=== PATIENT | female | born 1955 | race African-American/Black ===

== ENCOUNTER 2017-08-31 14:28 | Inpatient (IN) | payer OTHER ==
--- NOTE | 2017-08-31 18:06 | HP ---
COWS - Scale Resting Pulse: 0= [place] 80 or Below Sweatin=Flushed/Facial Moisture Restless Observation: 1= Difficult to Sit Still Pupil Size: 1= Pupils >than Normal Bone or Joint Aches: 2= Severe Diffuse Aches Runny Nose/ Eye Tearin= Runny Nose/Eyes GI Upset > 30mins: 2= Nausea/Diarrhea Tremor Observation: 1= Tremor [place], Not Seen Yawning Observation: 1= 1-2x During Session Anxiety or Irritability: 2=Irritable/Anxious Goose Flesh Skin: 0=Smooth Skin COWS Score: 14 Admission [facility] - [facility] Chief Complaint: Heroin Withdrawal symptoms Allergies/Adverse Reactions: Allergies Allergy/AdvReac Type Severity Reaction Status Date / Time No Known Drug Allergies Allergy Unknown Verified 08/31/17 17:19 RED MEAT Allergy Unknown Uncoded 08/31/17 17:19 History of Present Illness: Patient presents for withdrawal of heroin. Started using drugs at age 21. Sniffs heroin. Uses up to 14 bages a day of heroin. Has hx of HTN. Denies SI/ suicidal attempts. Denies seizures and history of overdose. Admitted to detox in 2011 at [facility]. - Ebola screening Have you traveled outside of the country in the last 21 days: No Have you had contact with anyone from an Ebola affected area: No Have you been sick,other than usual withdrawal symptoms: No Do you have a fever: No - Review of Systems Constitutional: Malaise, Night Sweats, Changes in sleep EENT: reports: Recent change in vision, Nose Congestion Respiratory: reports: SOB with Exertion (has history of asthma) Cardiac: reports: No Symptoms Reported GI: reports: Diarrhea, Nausea, Poor Fluid Intake : reports: No Symptoms Reported Musculoskeletal: reports: Back Pain, Joint Pain, Muscle Pain Neuro: reports: Tremors Endocrine: reports: Flushing Hematology: reports: No Symptoms Reported Psychiatric: reports: Anxious, Depressed Patient History - Patient Medical History Hx Anemia: No Hx Asthma: No Hx Chronic Obstructive Pulmonary Disease (COPD): Yes Hx Cancer: No Hx Cardiac Disorders: No Hx Congestive Heart Failure: No Hx Hypertension: Yes (ON MEDS.) Hx Hypercholesterolemia: No Hx Pacemaker: No HX Cerebrovascular Accident: No Hx Seizures: No Hx Dementia: No Hx Diabetes: No Hx Gastrointestinal Disorders: No Hx Liver Disease: No Hx Genitourinary Disorders: No Hx Sexually Transmitted Disorders: Yes (Tx for syphillis in college) Hx Renal Disease (ESRD): No Hx Thyroid Disease: No Hx Human Immunodeficiency Virus (HIV): No Hx Hepatitis C: No Hx Depression: No Hx Suicide Attempt: No Hx Bipolar Disorder: No Hx Schizophrenia: No - Patient Surgical History Past Surgical History: Yes Hx Neurologic Surgery: No Hx Cataract Extraction: No Hx Cardiac Surgery: No Hx Lung Surgery: No Hx Breast Surgery: No Hx Breast Biopsy: No Hx Abdominal Surgery: Yes (left inguinal hernia in 1979) Hx Appendectomy: No Hx Cholecystectomy: No Hx Genitourinary Surgery: No Hx Section: Yes (x 2,last in 1977) Hx Orthopedic Surgery: No Anesthesia Reaction: No - PPD History Previous Implant?: Yes Documented Results: Negative w/o proof Implanted On Prior R Admission?: Yes Date: 04/29/12 - Reproductive History Patient : No - Smoking Cessation Smoking history: Current every day smoker Have you smoked in the past 12 months: Yes Aproximately how many cigarettes per day: 6 Hx Chewing Tobacco Use: No Initiated information on smoking cessation: Yes 'Breaking Loose' booklet given: 08/31/17 - Substance & Tx. History Hx Alcohol Use: No Hx Substance Use: Yes Substance Use Type: Heroin Hx Substance Use Treatment: Yes - Substances Abused Heroin Route: Inhalation Frequency: Daily Amount used: 10 BAGS Age of first use: 20 Date of Last Use: 08/31/17 Family Disease History - Family Disease History Family Disease History: Diabetes: Father (), Heart Disease: Father, Mother () Admission Physical Exam BHS - Vital Signs Vital Signs: Vital Signs - 24 hr 08/31/17 17:12 Temperature 98.7 F Pulse Rate 74 Respiratory 20 Rate Blood Pressure 153/112 - Physical General Appearance: Yes: Appropriately Dressed, Anxious HEENTM: Yes: EOMI, Hearing grossly Normal, Normocephalic, Normal Voice, [place], Pharynx Normal Respiratory: Yes: Wheezing Neck: Yes: No masses,lesions,Nodules, Supple Breast: Yes: Breast Exam Deferred Cardiology: Yes: Within Normal Limits, Regular Rhythm, Regular Rate, S1, S2 Abdominal: Yes: Normal Bowel Sounds, Non Tender, Soft Genitourinary: Yes: Within Normal Limits Back: Yes: Muscle Spasm Musculoskeletal: Yes: Gait Steady, Back pain, Muscle Pain Extremities: Yes: Tremors Neurological: Yes: Fully Oriented, Alert, Depressed Affect Integumentary: Yes: Dry, Warm Lymphatic: Yes: Within Normal Limits - Diagnostic (1) Opioid dependence with withdrawal Current Visit: Yes Status: Acute (2) Opioid dependence Current Visit: Yes Status: Active (3) Essential hypertension Current Visit: No Status: Active (4) Depressed affect Current Visit: Yes Status: Acute Cleared for Admission [facility] - Detox or Rehab [facility] Level of Care: Medically Managed Detox Regimen/Protocol: Methadone [facility] Breath Alcohol Content Breath Alcohol Content: 0 Urine Pregancy Test - Result Urine Test Results: Negative- NO Line Present Urine Drug Screen - Results Drug Screen Negative: No Urine Drug Screen Results: OPI-Opiates Inpatient Rehab Admission - Initial Determination Are CD services needed?: Yes Free of communicable disease: Yes Not in need of hospitalization: Yes - Rehab Admission Criteria Previous failed treatment: Yes Poor recovery environment: Yes Comorbidities: Yes Lacks judgement: Yes
[2017-08-31] MEDS ORDERED: MAGNESIUM CITRATE 300 ML BOTTLE PO PRN (18:16)
[2017-08-31] MEDS ORDERED: MENTHOL/PHENOL 1 EACH UD MM PRN (18:16)
[2017-08-31] MEDS ORDERED: MAG HYDROX/AL HYDROX/SIMETH 30 ML UNIT-DOSE CUP PO PRN (18:16)
[2017-08-31] MEDS ORDERED: hydrOXYzine PAMOATE 50 MG CAPSULE (FP) PO PRN (18:16)
[2017-08-31] MEDS ORDERED: NICOTINE POLACRILEX 2 MG GUM BC PRN (18:16)
[2017-08-31] MEDS ORDERED: guaiFENesin/D-METHORPHAN HB 10 ML UNIT-DOSE CUPS PO PRN (18:16)
[2017-08-31] MEDS ORDERED: P-EPHED 60MG/TRIPROLIDI 2.5MG TABLET PO PRN (18:16)
[2017-08-31] MEDS ORDERED: MAGNESIUM HYDROX 2400MG/30ML ORAL SUSPENSION 30 ML CUP PO PRN (18:16)
[2017-08-31] MEDS ORDERED: LOPERAMIDE HCL 2 MG CAPSULE PO PRN (18:16)
[2017-08-31] MEDS ORDERED: IBUPROFEN 400 MG TABLET (FP) PO PRN (18:16)
[2017-08-31] MEDS ORDERED: ACETAMINOPHEN 325 MG TABLET (FP) PO PRN (18:16)
[2017-08-31] MEDS ORDERED: ALBUTEROL SO4 18 GM HFA INHALER IH PRN (18:19)
[2017-08-31] MEDS ORDERED: METHADONE HCL 10 MG TABLET (FOR DETOX USE ONLY) PO ONE ×2 (19:00→23:00)
[2017-08-31] MEDS ORDERED: amLODIPine BESYLATE 5 MG TABLET (FP) PO ONE (19:00)
[2017-08-31] MEDS: diazePAM 5 MG TABLET PO PRN (19:13)
[2017-08-31] MEDS ORDERED: MELATONIN 5 MG TABLETS PO PRN (22:00)
[2017-08-31] MEDS: THIAMINE HCL 100 MG TABLET (FP) PO SCH (22:46)
[2017-09-01] MEDS: diazePAM 5 MG TABLET PO PRN ×4 (00:57→22:56)
[2017-09-01 01:39] LABS: URINE APPEARANCE CLEAR; URINE BILIRUBIN NEGATIVE (<2.0 mg/dL); URINE BLOOD NEGATIVE (NEGATIVE); URINE COLOR YELLOW; URINE GLUCOSE (UA) NEGATIVE (NEGATIVE); URINE KETONE NEGATIVE (NEGATIVE); URINE LEUK ESTERASE TRACE (NEGATIVE); URINE NITRITE NEGATIVE (NEGATIVE); URINE PROTEIN NEGATIVE (NEGATIVE); URINE UROBILINOGEN NEGATIVE mg/dL (0.2-1.0)
[2017-09-01 01:56] LABS: EPI CELLS FEW /HPF (FEW); URINE MUCUS RARE
[2017-09-01] MEDS ORDERED: METHADONE HCL 10 MG TABLET (FOR DETOX USE ONLY) PO ONE (10:00)
--- NOTE | 2017-09-01 10:35 | EKG ---
Test Reason : Blood Pressure : / mmHG Vent. Rate : 059 BPM Atrial Rate : 059 BPM P-R Int : 278 ms QRS Dur : 096 ms QT Int : 458 ms P-R-T Axes : 003 -13 017 degrees QTc Int : 453 ms SINUS BRADYCARDIA WITH 1ST DEGREE A-V BLOCK INFERIOR INFARCT , AGE UNDETERMINED ABNORMAL ECG NO PREVIOUS ECGS AVAILABLE Confirmed by ENRRIQUE ROLDAN MD ([id number]) on 09/01/2017 10:35:07 AM Referred By: Confirmed By:ENRRIQUE ROLDAN MD
[2017-09-01 11:16] LABS: HEMATOCRIT 37.2 % (32.4-45.2); HEMOGLOBIN 12.3 GM/dL (10.7-15.3); MCH 30.6 pg (25.7-33.7); MCHC 33.1 g/dl (32.0-36.0); MEAN CELL VOLUME 92.7 fl (80-96); MEAN PLT VOLUME 9.3 fl (7.5-11.1); PLATELET COUNT 301 K/MM3 (134-434); RBC 4.01 M/mm3 (3.60-5.2); RDW 13.7 % (11.6-15.6); WHITE BLOOD COUNT 6.4 K/mm3 (4.0-10.0)
[2017-09-01] MEDS: PRENATAL VITAMINS W/ FOLIC ACID TABLET (FP) PO SCH (11:21)
[2017-09-01 11:34] LABS: CHLORIDE 100 mmol/L (98-107); POTASSIUM 3.3 mmol/L (3.5-5.1); SODIUM 140 mmol/L (136-145)
[2017-09-01] MEDS: NICOTINE 14 MG/24 HOURS TOPICAL PATCH TD SCH (11:45)
[2017-09-01 12:00] LABS: ALBUMIN 3.2 g/dl (3.4-5.0); ANION GAP 6 (8-16); BILIRUBIN,TOTAL 0.5 mg/dL (0.2-1.0); BLOOD UREA NITROGEN 11 mg/dL (7-18); CO2 34 mmol/L (21-32); CREATININE 0.8 mg/dL (0.55-1.02); GLUCOSE,RANDOM 94 mg/dL (74-106); SGOT/AST 15 U/L (15-37); SGPT/ALT 20 U/L (12-78); TOT PROT 6.4 g/dl (6.4-8.2)
[2017-09-01 12:13] LABS: ALK PHOS 53 U/L (45-117)
[2017-09-01 12:43] LABS: SICKLE CELL SCREEN NEGATIVE (NEGATIVE)
--- NOTE | 2017-09-01 14:25 | CONSULT ---
[facility] Psychiatric Consult - Data Date of interview: 09/01/17 Admission source: [facility] Identifying data: Readmission to [facility] for this 61 y/o AA female seeking detox treatment on for heroin dependence.Patient is ,a mother of two,domiciled,unemployed and supported on Social Security benefits. Substance Abuse History: Confirmed by patient in this interview.Details in the current [facility] report that follows : Smoking history: Current every day smoker. Have you smoked in the past 12 months: Yes. Aproximately how many cigarettes per day: 6. Hx Chewing Tobacco Use: No. Initiated information on smoking cessation: Yes. 'Breaking Loose' booklet given: 08/31/17. - Substance & Tx. History. Hx Alcohol Use: No. Hx Substance Use: Yes. Substance Use Type: Heroin. Hx Substance Use Treatment: Yes. - Substances Abused. Heroin. Route: Inhalation. Frequency: Daily. Amount used: 10 BAGS. Age of first use: 20. Date of Last Use: 08/31/17 Medical History: Hypertension,dyslipidemia,antecedent of treatment for syphilis, COPD and a history of surgeries (two sections + left inguinal herniorraphy). Psychiatric History: Patient denies. Additional Comment: Urine Drug Screen Results: OPI-Opiates.Noted. Mental Status Exam - Mental Status Exam Alert and Oriented to: Time, Place, Person Cognitive Function: Good Patient Appearance: Well Groomed (short stature) Mood: Withdrawn, Anxious Affect: Mood Congruent Patient Behavior: Fatigued, Appropriate, Cooperative Speech Pattern: Clear, Appropriate Voice Loudness: Normal Thought Process: Goal Oriented Thought Disorder: Not Present Hallucinations: Denies Suicidal Ideation: Denies Homicidal Ideation: Denies Insight/Judgement: Poor Sleep: Fair Appetite: Good Muscle strength/Tone: Normal Gait/Station: Normal Psychiatric Findings - Problem List ([place] 1, 2,3) (1) Opioid dependence with withdrawal Current Visit: Yes Status: Acute (2) Substance induced mood disorder Current Visit: Yes Status: Acute - Initial Treatment Plan Initial Treatment Plan: Psychoeducation.Detoxification in progress.Support.observation.
--- NOTE | 2017-09-01 15:21 | PN ---
BHS COWS - Scale Resting Pulse: 0= [place] 80 or Below Sweatin= Chills/Flushing Restless Observation: 1= Difficult to Sit Still Pupil Size: 0= Normal to Room Light Bone or Joint Aches: 2= Severe Diffuse Aches Runny Nose/ Eye Tearin= Nasal Congestion GI Upset > 30mins: 2= Nausea/Diarrhea Tremor Observation of Outstretched Hands: 1= Tremor [place], Not Seen Yawning Observation: 0= None Anxiety or Irritability: 2=Irritable/Anxious Goose Flesh Skin: 0=Smooth Skin COWS Score: 10 BHS Progress Note (SOAP) Subjective: Back pain, tremors and chills Objective: 09/01/17 15:19 Vital Signs - 8 hr 09/01/17 10:00 Temperature 98.1 F Pulse Rate 57 L Respiratory 20 Rate Blood Pressure 125/79 Laboratory Last Values WBC 6.4 K/mm3 (4.0-10.0) 09/01/17 08:00 RBC 4.01 M/mm3 (3.60-5.2) 09/01/17 08:00 Hgb 12.3 GM/dL (10.7-15.3) 09/01/17 08:00 Hct 37.2 % (32.4-45.2) 09/01/17 08:00 MCV 92.7 fl (80-96) 09/01/17 08:00 MCH 30.6 pg (25.7-33.7) 09/01/17 08:00 MCHC 33.1 g/dl (32.0-36.0) 09/01/17 08:00 RDW 13.7 % (11.6-15.6) 09/01/17 08:00 Plt Count 301 K/MM3 (134-434) 09/01/17 08:00 MPV 9.3 fl (7.5-11.1) 09/01/17 08:00 Sickle Cell Screen Negative (NEGATIVE) 09/01/17 08:00 Sodium 140 mmol/L (136-145) 09/01/17 08:00 Potassium 3.3 mmol/L (3.5-5.1) L 09/01/17 08:00 Chloride 100 mmol/L (98-107) 09/01/17 08:00 Carbon Dioxide 34 mmol/L (21-32) H 09/01/17 08:00 Anion Gap 6 (8-16) L 09/01/17 08:00 BUN 11 mg/dL (7-18) 09/01/17 08:00 Creatinine 0.8 mg/dL (0.55-1.02) 09/01/17 08:00 Creat Clearance w eGFR > 60 (>60) 09/01/17 08:00 Random Glucose 94 mg/dL (74-106) 09/01/17 08:00 Calcium 9.0 mg/dL (8.5-10.1) 09/01/17 08:00 Total Bilirubin 0.5 mg/dL (0.2-1.0) D 09/01/17 08:00 AST 15 U/L (15-37) 09/01/17 08:00 ALT 20 U/L (12-78) 09/01/17 08:00 Alkaline Phosphatase 53 U/L (45-117) 09/01/17 08:00 Total Protein 6.4 g/dl (6.4-8.2) 09/01/17 08:00 Albumin 3.2 g/dl (3.4-5.0) L 09/01/17 08:00 Urine Color Yellow 09/01/17 00:02 Urine Appearance Clear 09/01/17 00:02 Urine pH 5.0 (5.0-8.0) D 09/01/17 00:02 Ur Specific [place] 1.020 (1.001-1.035) 09/01/17 00:02 Urine Protein Negative (NEGATIVE) 09/01/17 00:02 Urine Glucose (UA) Negative (NEGATIVE) 09/01/17 00:02 Urine Ketones Negative (NEGATIVE) 09/01/17 00:02 Urine Blood Negative (NEGATIVE) 09/01/17 00:02 Urine Nitrite Negative (NEGATIVE) 09/01/17 00:02 Urine Bilirubin Negative (<2.0 mg/dL) 09/01/17 00:02 Urine Urobilinogen Negative mg/dL (0.2-1.0) 09/01/17 00:02 Ur Leukocyte Esterase Trace (NEGATIVE) 09/01/17 00:02 Urine WBC (Auto) 9 /hpf (3-5) 09/01/17 00:02 Urine RBC (Auto) 2 /hpf (0-3) 09/01/17 00:02 Ur Epithelial Cells Few /HPF (FEW) 09/01/17 00:02 Urine Mucus Rare 09/01/17 00:02 Lab note-low potassium level Assessment: 09/01/17 15:20 Withdrawal sx Hypokalemia Plan: Continue detox Potassium supplement 20mg PO x 3 days. Repeat BMP on 09/03
[2017-09-01] MEDS ORDERED: POTASSIUM CHLORIDE TABS 10 MEQ TABLET.ER (FP) PO SCH (15:30)
[2017-09-01] MEDS: POTASSIUM CHLORIDE TABS 20 MEQ TABLET.ER (FP) PO SCH (17:09)
[2017-09-01] MEDS: THIAMINE HCL 100 MG TABLET (FP) PO SCH (22:56)
[2017-09-02] MEDS: diazePAM 5 MG TABLET PO PRN ×3 (02:46→15:22)
[2017-09-02] MEDS ORDERED: METHADONE HCL 5 MG TABLET (FOR DETOX USE ONLY) PO ONE (10:00)
[2017-09-02] MEDS ORDERED: SODIUM CHLORIDE NASAL SPRAY 44 ML BOTTLE NS PRN (10:28)
[2017-09-02] MEDS ORDERED: amLODIPine BESYLATE 5 MG TABLET (FP) PO SCH (10:30)
--- NOTE | 2017-09-02 10:33 | PN ---
BHS COWS - Scale Resting Pulse: 0= [place] 80 or Below Sweatin= Chills/Flushing Restless Observation: 1= Difficult to Sit Still Pupil Size: 0= Normal to Room Light Bone or Joint Aches: 1= Mild Discomfort Runny Nose/ Eye Tearin= Nasal Congestion GI Upset > 30mins: 1= Stomach Cramp Tremor Observation of Outstretched Hands: 1= Tremor [place], Not Seen Yawning Observation: 2= >3x During Session Anxiety or Irritability: 1=Feels Anxious/Irritable Goose Flesh Skin: 0=Smooth Skin COWS Score: 9 BHS Progress Note (SOAP) Subjective: sweat restlessness tremor poor sleep joint ache body pain stuffy nose i have high blood pressure Objective: 09/02/17 10:31 Vital Signs Temperature 98.1 F 09/02/17 06:00 Pulse Rate 60 09/02/17 06:00 Respiratory Rate 18 09/02/17 06:00 Blood Pressure 129/76 09/02/17 06:00 O2 Sat by Pulse Oximetry (%) Laboratory Last Values WBC 6.4 K/mm3 (4.0-10.0) 09/01/17 08:00 RBC 4.01 M/mm3 (3.60-5.2) 09/01/17 08:00 Hgb 12.3 GM/dL (10.7-15.3) 09/01/17 08:00 Hct 37.2 % (32.4-45.2) 09/01/17 08:00 MCV 92.7 fl (80-96) 09/01/17 08:00 MCH 30.6 pg (25.7-33.7) 09/01/17 08:00 MCHC 33.1 g/dl (32.0-36.0) 09/01/17 08:00 RDW 13.7 % (11.6-15.6) 09/01/17 08:00 Plt Count 301 K/MM3 (134-434) 09/01/17 08:00 MPV 9.3 fl (7.5-11.1) 09/01/17 08:00 Sickle Cell Screen Negative (NEGATIVE) 09/01/17 08:00 Sodium 140 mmol/L (136-145) 09/01/17 08:00 Potassium 3.3 mmol/L (3.5-5.1) L 09/01/17 08:00 Chloride 100 mmol/L (98-107) 09/01/17 08:00 Carbon Dioxide 34 mmol/L (21-32) H 09/01/17 08:00 Anion Gap 6 (8-16) L 09/01/17 08:00 BUN 11 mg/dL (7-18) 09/01/17 08:00 Creatinine 0.8 mg/dL (0.55-1.02) 09/01/17 08:00 Creat Clearance w eGFR > 60 (>60) 09/01/17 08:00 Random Glucose 94 mg/dL (74-106) 09/01/17 08:00 Calcium 9.0 mg/dL (8.5-10.1) 09/01/17 08:00 Total Bilirubin 0.5 mg/dL (0.2-1.0) D 09/01/17 08:00 AST 15 U/L (15-37) 09/01/17 08:00 ALT 20 U/L (12-78) 09/01/17 08:00 Alkaline Phosphatase 53 U/L (45-117) 09/01/17 08:00 Total Protein 6.4 g/dl (6.4-8.2) 09/01/17 08:00 Albumin 3.2 g/dl (3.4-5.0) L 09/01/17 08:00 Urine Color Yellow 09/01/17 00:02 Urine Appearance Clear 09/01/17 00:02 Urine pH 5.0 (5.0-8.0) D 09/01/17 00:02 Ur Specific [place] 1.020 (1.001-1.035) 09/01/17 00:02 Urine Protein Negative (NEGATIVE) 09/01/17 00:02 Urine Glucose (UA) Negative (NEGATIVE) 09/01/17 00:02 Urine Ketones Negative (NEGATIVE) 09/01/17 00:02 Urine Blood Negative (NEGATIVE) 09/01/17 00:02 Urine Nitrite Negative (NEGATIVE) 09/01/17 00:02 Urine Bilirubin Negative (<2.0 mg/dL) 09/01/17 00:02 Urine Urobilinogen Negative mg/dL (0.2-1.0) 09/01/17 00:02 Ur Leukocyte Esterase Trace (NEGATIVE) 09/01/17 00:02 Urine WBC (Auto) 9 /hpf (3-5) 09/01/17 00:02 Urine RBC (Auto) 2 /hpf (0-3) 09/01/17 00:02 Ur Epithelial Cells Few /HPF (FEW) 09/01/17 00:02 Urine Mucus Rare 09/01/17 00:02 RPR Titer Nonreactive (NONREACTIVE) 09/01/17 08:00 lab noted potassium supplement Assessment: 09/02/17 10:32 withdrawal sx hypokalemia 09/02/17 10:32 hypertension 09/02/17 10:33 stuffy nose Plan: continue detox potassium supplement resume home med hypertension nasal spread
[2017-09-02] MEDS: POTASSIUM CHLORIDE TABS 20 MEQ TABLET.ER (FP) PO SCH (10:41)
[2017-09-02] MEDS: PRENATAL VITAMINS W/ FOLIC ACID TABLET (FP) PO SCH (10:41)
[2017-09-02] MEDS: NICOTINE 14 MG/24 HOURS TOPICAL PATCH TD SCH (10:42)
[2017-09-02] MEDS: ASPIRIN 81 MG CHEWABLE TABLETS PO SCH (11:36)
[2017-09-02] MEDS: amLODIPine BESYLATE 5 MG TABLET (FP) PO SCH (11:37)
[2017-09-02] MEDS: SODIUM CHLORIDE NASAL SPRAY 44 ML BOTTLE NS SCH ×2 (13:49→22:52)
[2017-09-02] MEDS: THIAMINE HCL 100 MG TABLET (FP) PO SCH (22:52)
[2017-09-03] MEDS: diazePAM 5 MG TABLET PO PRN (01:33)
[2017-09-03] MEDS: SODIUM CHLORIDE NASAL SPRAY 44 ML BOTTLE NS SCH (05:26)
[2017-09-03 06:27] VITALS: BP 127/86; PULSE 89; TEMP 97.7
[2017-09-03] MEDS ORDERED: METHADONE HCL 5 MG TABLET (FOR DETOX USE ONLY) PO ONE (10:00)
[2017-09-03] MEDS: ASPIRIN 81 MG CHEWABLE TABLETS PO SCH (11:02)
[2017-09-03] MEDS: NICOTINE 14 MG/24 HOURS TOPICAL PATCH TD SCH (11:02)
[2017-09-03] MEDS: POTASSIUM CHLORIDE TABS 20 MEQ TABLET.ER (FP) PO SCH (11:02)
[2017-09-03] MEDS: amLODIPine BESYLATE 5 MG TABLET (FP) PO SCH (11:03)
[2017-09-03] MEDS: PRENATAL VITAMINS W/ FOLIC ACID TABLET (FP) PO SCH (11:03)
--- NOTE | 2017-09-03 11:26 | DS ---
[facility] Detox Discharge Summary Admission Date: 08/31/17 Discharge Date: 09/03/17 - History Present History: Opioid Dependence Additional Comments: 61 years old female with long history of heroin dependence, admitted for opiates detox, wants to terminate the detox process patient insists to leave the facility "i have priority" health teaching on hypertension and benefit of healthy life style and medication adherence patient acknowledge community self support meeting patient agrees MD BAR aftercare and medical follow up patient is alert oriented x 3 steady gait, coherent, no acute distress, denies suicidal denies homocidal no self destructive behavior S1S2 clear lung bilaterally abdomen self non tender had regular bowel movement early today extremities full range of motion - Physical Exam Results Vital Signs: Vital Signs Temperature 97.7 F 09/03/17 06:26 Pulse Rate 89 09/03/17 06:26 Respiratory Rate 18 09/03/17 06:26 Blood Pressure 127/86 09/03/17 06:26 O2 Sat by Pulse Oximetry (%) Pertinent Admission Physical Exam Findings: withdrawal sx Vital Signs Temperature 97.7 F 09/03/17 06:26 Pulse Rate 89 09/03/17 06:26 Respiratory Rate 18 09/03/17 06:26 Blood Pressure 127/86 09/03/17 06:26 O2 Sat by Pulse Oximetry (%) Laboratory Last Values WBC 6.4 K/mm3 (4.0-10.0) 09/01/17 08:00 RBC 4.01 M/mm3 (3.60-5.2) 09/01/17 08:00 Hgb 12.3 GM/dL (10.7-15.3) 09/01/17 08:00 Hct 37.2 % (32.4-45.2) 09/01/17 08:00 MCV 92.7 fl (80-96) 09/01/17 08:00 MCH 30.6 pg (25.7-33.7) 09/01/17 08:00 MCHC 33.1 g/dl (32.0-36.0) 09/01/17 08:00 RDW 13.7 % (11.6-15.6) 09/01/17 08:00 Plt Count 301 K/MM3 (134-434) 09/01/17 08:00 MPV 9.3 fl (7.5-11.1) 09/01/17 08:00 Sickle Cell Screen Negative (NEGATIVE) 09/01/17 08:00 Sodium 140 mmol/L (136-145) 09/01/17 08:00 Potassium 3.3 mmol/L (3.5-5.1) L 09/01/17 08:00 Chloride 100 mmol/L (98-107) 09/01/17 08:00 Carbon Dioxide 34 mmol/L (21-32) H 09/01/17 08:00 Anion Gap 6 (8-16) L 09/01/17 08:00 BUN 11 mg/dL (7-18) 09/01/17 08:00 Creatinine 0.8 mg/dL (0.55-1.02) 09/01/17 08:00 Creat Clearance w eGFR > 60 (>60) 09/01/17 08:00 Random Glucose 94 mg/dL (74-106) 09/01/17 08:00 Calcium 9.0 mg/dL (8.5-10.1) 09/01/17 08:00 Total Bilirubin 0.5 mg/dL (0.2-1.0) D 09/01/17 08:00 AST 15 U/L (15-37) 09/01/17 08:00 ALT 20 U/L (12-78) 09/01/17 08:00 Alkaline Phosphatase 53 U/L (45-117) 09/01/17 08:00 Total Protein 6.4 g/dl (6.4-8.2) 09/01/17 08:00 Albumin 3.2 g/dl (3.4-5.0) L 09/01/17 08:00 Urine Color Yellow 09/01/17 00:02 Urine Appearance Clear 09/01/17 00:02 Urine pH 5.0 (5.0-8.0) D 09/01/17 00:02 Ur Specific [place] 1.020 (1.001-1.035) 09/01/17 00:02 Urine Protein Negative (NEGATIVE) 09/01/17 00:02 Urine Glucose (UA) Negative (NEGATIVE) 09/01/17 00:02 Urine Ketones Negative (NEGATIVE) 09/01/17 00:02 Urine Blood Negative (NEGATIVE) 09/01/17 00:02 Urine Nitrite Negative (NEGATIVE) 09/01/17 00:02 Urine Bilirubin Negative (<2.0 mg/dL) 09/01/17 00:02 Urine Urobilinogen Negative mg/dL (0.2-1.0) 09/01/17 00:02 Ur Leukocyte Esterase Trace (NEGATIVE) 09/01/17 00:02 Urine WBC (Auto) 9 /hpf (3-5) 09/01/17 00:02 Urine RBC (Auto) 2 /hpf (0-3) 09/01/17 00:02 Ur Epithelial Cells Few /HPF (FEW) 09/01/17 00:02 Urine Mucus Rare 09/01/17 00:02 RPR Titer Nonreactive (NONREACTIVE) 09/01/17 08:00 lab noted - Treatment Hospital Course: Detox Protocol Followed, Responded well Patient has Accepted a Rehab Referral to: as per counselor arranged - Medication Discharge Medications: Ambulatory Orders Aspirin [ASA -] 81 mg PO DAILY 08/31/17 Amlodipine Besylate [Norvasc -] 5 mg PO DAILY #30 tablet 09/03/17 Amlodipine Besylate [Norvasc -] 5 mg PO DAILY #30 tablet 09/03/17 - Diagnosis (1) Essential hypertension Current Visit: Yes Status: Chronic (2) Opioid dependence with withdrawal Current Visit: Yes Status: Acute - AMA Did Patient Leave Against Medical Advice: Yes
[2017-09-03 12:32] LABS: ANION GAP 5 (8-16); BLOOD UREA NITROGEN 8 mg/dL (7-18); CALCIUM 9.1 mg/dL (8.5-10.1); CHLORIDE 100 mmol/L (98-107); CO2 34 mmol/L (21-32); CREATININE 0.8 mg/dL (0.55-1.02); GLUCOSE,RANDOM 99 mg/dL (74-106); POTASSIUM 3.7 mmol/L (3.5-5.1); SODIUM 139 mmol/L (136-145)
[2017-09-04] MEDS ORDERED: METHADONE HCL 10 MG TABLET (FOR DETOX USE ONLY) PO ONE (10:00)
[2017-09-05] MEDS ORDERED: METHADONE HCL 5 MG TABLET (FOR DETOX USE ONLY) PO ONE (06:00)
== END 2017-09-03 11:02 | disposition left against medical advice (07) | DRG 770 ==
LOC: YASAS 14:28 → Y6N 18:23
PROVIDERS: ADMIT Internal Medicine; ATTEND Internal Medicine
PROC: HZ2ZZZZ Detoxification Services for Substance Abuse Treatment (ICD-10-PCS; principal; 2017-08-31)
DX: F11.23 Opioid dependence with withdrawal (principal); F19.24 Other psychoactive substance dependence with psychoactive substance-induced mood disorder; I10 Essential (primary) hypertension; Z86.19 Personal history of other infectious and parasitic diseases; Z59.0 Homelessness
CPT/HCPCS: 36415; 80048; 80053; 81003; 81015; 85027; 85660; 86593; 93005; 93010

== ENCOUNTER 2018-10-09 14:42 | Inpatient (IN) | payer OTHER ==
--- NOTE | 2018-10-09 19:32 | HP ---
COWS - Scale Resting Pulse: 1= [place] 81-100 Sweatin=Flushed/Facial Moisture Restless Observation: 1= Difficult to Sit Still Pupil Size: 1= Pupils >than Normal Bone or Joint Aches: 2= Severe Diffuse Aches Runny Nose/ Eye Tearin= Nasal Congestion GI Upset > 30mins: 1= Stomach Cramp Tremor Observation: 1= Tremor [place], Not Seen Yawning Observation: 1= 1-2x During Session Anxiety or Irritability: 1=Feels Anxious/Irritable Goose Flesh Skin: 0=Smooth Skin COWS Score: 12 CIWA Score - Admission Criteria [facility]ASAS Guidelines: Admission for Medically Managed Detox: Requires at least one of the followin. CIWA greater than 12 2. Seizures within the past 24 hours 3. Delirium tremens within the past 24 hours 4. Hallucinations within the past 24 hours 5. Acute intervention needed for co occurring medical disorder 6. Acute intervention needed for co occurring psychiatric disorder 7. Severe withdrawal that cannot be handled at a lower level of care (continued vomiting, continued diarrhea, abnormal vital signs) requiring intravenous medication and/or fluids 8. Admission ROS S - HPI Chief Complaint: heroin detox 62 yo with h/o HTN- does not remember medication she takes, states she is here b /c she is ready for detox. HAs been using heroin since age 19. heroin- uses 10 -13 bags, sniffing, no OD denies other drugs UTox: opioids DUR- no controlled substances Allergies/Adverse Reactions: Allergies Allergy/AdvReac Type Severity Reaction Status Date / Time No Known Drug Allergies Allergy Unknown Verified 08/31/17 17:19 RED MEAT Allergy Unknown Uncoded 08/31/17 17:19 - Ebola screening Have you traveled outside of the country in the last 21 days: No Have you had contact with anyone from an Ebola affected area: No Do you have a fever: No Patient History - Patient Medical History Hx Anemia: No Hx Asthma: No Hx Chronic Obstructive Pulmonary Disease (COPD): Yes Hx Cancer: No Hx Cardiac Disorders: No Hx Congestive Heart Failure: No Hx Hypertension: Yes (ON MEDS.) Hx Hypercholesterolemia: No Hx Pacemaker: No HX Cerebrovascular Accident: No Hx Seizures: No Hx Dementia: No Hx Diabetes: No Hx Gastrointestinal Disorders: No Hx Liver Disease: No Hx Genitourinary Disorders: No Hx Sexually Transmitted Disorders: Yes (Tx for syphillis in college) Hx Renal Disease (ESRD): No Hx Thyroid Disease: No Hx Human Immunodeficiency Virus (HIV): No Hx Hepatitis C: No Hx Depression: No Hx Suicide Attempt: No Hx Bipolar Disorder: No Hx Schizophrenia: No - Patient Surgical History Past Surgical History: Yes Hx Neurologic Surgery: No Hx Cataract Extraction: No Hx Cardiac Surgery: No Hx Lung Surgery: No Hx Breast Surgery: No Hx Breast Biopsy: No Hx Abdominal Surgery: Yes (left inguinal hernia in 1979) Hx Appendectomy: No Hx Cholecystectomy: No Hx Genitourinary Surgery: No Hx Section: Yes (x 2,last in 1977) Hx Orthopedic Surgery: No Anesthesia Reaction: No - PPD History Documented Results: Negative w/o proof Date: 09/02/17 - Smoking Cessation Smoking history: Current every day smoker Have you smoked in the past 12 months: Yes Aproximately how many cigarettes per day: 10 Hx Chewing Tobacco Use: No Initiated information on smoking cessation: Yes 'Breaking Loose' booklet given: 10/09/18 - Substance & Tx. History Hx Alcohol Use: No Hx Substance Use: No Substance Use Type: Heroin - Substances abused Heroin Substance route: Inhalation Family Disease History - Family Disease History Family Disease History: Diabetes: Father (), Heart Disease: Father, Mother () Admission Physical Exam BHS - Physical General Appearance: Yes: Within Normal Limits HEENTM: Yes: Within Normal Limits, EOMI, Hearing grossly Normal Respiratory: Yes: Within Normal Limits, Chest Non-Tender, Lungs Clear Neck: Yes: Within Normal Limits, No masses,lesions,Nodules Breast: Yes: Within Normal Limits Cardiology: Yes: Within Normal Limits, Regular Rhythm, Regular Rate Abdominal: Yes: Within Normal Limits, Normal Bowel Sounds, Non Tender Genitourinary: Yes: Within Normal Limits Back: Yes: Within Normal Limits Musculoskeletal: Yes: Within Normal Limits Extremities: Yes: Within Normal Limits Neurological: Yes: Within Normal Limits, tile designer II-XII NML intact, Fully Oriented Integumentary: Yes: Other (eczema of feet and palms and of elbows) - Diagnostic (1) Eczema Current Visit: Yes Status: Acute (2) Opioid dependence Current Visit: No Status: Active (3) Opioid dependence with withdrawal Current Visit: No Status: Acute (4) Essential hypertension Current Visit: No Status: Chronic Breathalyzer - Breathalyzer Breathalyzer: 0 Urine Drug Screen - Test Device Lot number: [id number] Expiration date: 08/25/19 - Control Is test valid?: Yes - Results Drug screen NEGATIVE: No Urine drug screen results: FEN-Fentanyl, MOP-Opiates, OXY-Oxycodone Inpatient Rehab Admission - Rehab Decision to Admit Inpatient rehab admission?: No
[2018-10-09] MEDS ORDERED: MAGNESIUM CITRATE 300 ML BOTTLE PO PRN (19:36)
[2018-10-09] MEDS ORDERED: ACETAMINOPHEN 325 MG TABLET (FP) PO PRN ×2 (19:36)
[2018-10-09] MEDS ORDERED: IBUPROFEN 400 MG TABLET (FP) PO PRN (19:36)
[2018-10-09] MEDS ORDERED: MENTHOL/PHENOL 1 EACH UD MM PRN (19:36)
[2018-10-09] MEDS ORDERED: cloNIDine HCL 0.1 MG TABLET PO PRN (19:36)
[2018-10-09] MEDS ORDERED: MAG HYDROX/AL HYDROX/SIMETH 30 ML UNIT-DOSE CUP PO PRN (19:36)
[2018-10-09] MEDS ORDERED: ONDANSETRON *ODT* 4 MG TABLET SL PRN (19:36)
[2018-10-09] MEDS ORDERED: MAGNESIUM HYDROX 2400MG/30ML ORAL SUSPENSION 30 ML CUP PO PRN (19:36)
[2018-10-09] MEDS ORDERED: MELATONIN 5 MG TABLETS PO PRN (19:36)
[2018-10-09] MEDS ORDERED: BISMUTH SUBSALICYLATE 524 MG/30 ML UD PO PRN (19:36)
[2018-10-09] MEDS ORDERED: METHOCARBAMOL 500 MG TABLET PO PRN (19:36)
[2018-10-09] MEDS ORDERED: METHADONE HCL 10 MG TABLET (FOR DETOX USE ONLY) PO ONE ×2 (20:00→23:00)
[2018-10-09] MEDS: clonazePAM 0.5 MG TABLET PO PRN (21:50)
[2018-10-09] MEDS: amLODIPine BESYLATE 5 MG TABLET (FP) PO SCH (21:50)
[2018-10-09] MEDS: THIAMINE HCL 100 MG TABLET (FP) PO SCH (21:50)
[2018-10-09] MEDS: FLUOCINONIDE 0.05% TOP OINT (60 GM TUBE) TP SCH (22:56)
[2018-10-10] MEDS ORDERED: METHADONE HCL 10 MG TABLET (FOR DETOX USE ONLY) PO ONE (10:00)
[2018-10-10 10:06] LABS: HEMATOCRIT 40.6 % (32.4-45.2); HEMOGLOBIN 13.1 GM/dL (10.7-15.3); MCH 30.6 pg (25.7-33.7); MCHC 32.4 g/dl (32.0-36.0); MEAN CELL VOLUME 94.4 fl (80-96); MEAN PLT VOLUME 9.1 fl (7.5-11.1); PLATELET COUNT 312 K/MM3 (134-434); RDW 13.9 % (11.6-15.6); WHITE BLOOD COUNT 7.5 K/mm3 (4.0-10.0)
[2018-10-10] MEDS: amLODIPine BESYLATE 5 MG TABLET (FP) PO SCH (10:07)
[2018-10-10] MEDS: PRENATAL VITAMINS W/ FOLIC ACID TABLET (FP) PO SCH (10:07)
[2018-10-10] MEDS: FLUOCINONIDE 0.05% TOP OINT (60 GM TUBE) TP SCH ×2 (10:09→22:20)
[2018-10-10 10:10] LABS: ALBUMIN 3.6 g/dl (3.4-5.0); CALCIUM 9.3 mg/dL (8.5-10.1); CREATININE 0.8 mg/dL (0.55-1.3); POTASSIUM 3.5 mmol/L (3.5-5.1); TOT PROT 7.1 g/dl (6.4-8.2)
[2018-10-10] MEDS: hydrOXYzine PAMOATE 25 MG CAPSULE (FP) PO PRN (11:05)
--- NOTE | 2018-10-10 11:46 | PN ---
[facility] COWS - Scale Resting Pulse: 0= [place] 80 or Below Sweatin=Flushed/Facial Moisture Restless Observation: 1= Difficult to Sit Still Pupil Size: 0= Normal to Room Light Bone or Joint Aches: 2= Severe Diffuse Aches Runny Nose/ Eye Tearin= Nasal Congestion GI Upset > 30mins: 1= Stomach Cramp Tremor Observation of Outstretched Hands: 1= Tremor [place], Not Seen Yawning Observation: 2= >3x During Session Anxiety or Irritability: 2=Irritable/Anxious Goose Flesh Skin: 0=Smooth Skin COWS Score: 12 B[facility] Progress Note (SOAP) Subjective: constipation anxiety sweats interrupted sleep Objective: 10/10/18 11:44 Vital Signs Temperature 98.5 F 10/10/18 10:39 Pulse Rate 61 10/10/18 10:39 Respiratory Rate 10/10/18 10:39 Blood Pressure 150/90 10/10/18 10:39 O2 Sat by Pulse Oximetry (%) Laboratory Tests 10/09/18 10/10/18 10/10/18 19:16 07:00 07:00 WBC 7.5 RBC 4.30 Hgb 13.1 Hct 40.6 MCV 94.4 MCH 30.6 MCHC 32.4 RDW 13.9 Plt Count 312 MPV 9.1 Sodium 140 Potassium 3.5 Chloride 101 Carbon Dioxide 33 H Anion Gap 5 L BUN 10 Creatinine 0.8 Est GFR (CKD-EPI)AfAm 90.30 Est GFR (CKD-EPI)NonAf 77.91 Random Glucose 105 Calcium 9.3 Total Bilirubin 1.0 AST 15 ALT 17 Alkaline Phosphatase 59 Total Protein 7.1 Albumin 3.6 POC Urine HCG, Qual Negative RPR Titer 10/10/18 07:00 WBC RBC Hgb Hct MCV MCH MCHC RDW Plt Count MPV Sodium Potassium Chloride Carbon Dioxide Anion Gap BUN Creatinine Est GFR (CKD-EPI)AfAm Est GFR (CKD-EPI)NonAf Random Glucose Calcium Total Bilirubin AST ALT Alkaline Phosphatase Total Protein Albumin POC Urine HCG, Qual RPR Titer Nonreactive labs noted aaox3 ambulating no acute distress Assessment: 10/10/18 11:44 withdrawal sx Plan: continue detox pt was made aware to ask for klonopin for any anxiety she may be experiencing. increase fluids
[2018-10-10 12:41] LABS: EPI CELLS 18.8 /HPF (0-5/HPF); PH,URINE 6.5 (5.0-8.0); URINE APPEARANCE CLOUDY; URINE BACTERIA 325.5 /hpf (NEGATIVE); URINE BILIRUBIN NEGATIVE (NEGATIVE); URINE CASTS 2 /lpf (0-8); URINE COLOR YELLOW; URINE GLUCOSE (UA) NEGATIVE (NEGATIVE); URINE KETONE NEGATIVE (NEGATIVE); URINE LEUK ESTERASE 1+ (NEGATIVE); URINE NITRITE NEGATIVE (NEGATIVE); URINE PROTEIN NEGATIVE (NEGATIVE); URINE RBC 2 /hpf (0-4); URINE UROBILINOGEN 0.2 mg/dL (0.2-1.0); URINE WBC 12 /hpf (0-5)
[2018-10-10 14:30] LABS: URINE CRYSTALS CALCIUM OXALATE /hpf
[2018-10-10] MEDS: THIAMINE HCL 100 MG TABLET (FP) PO SCH (22:20)
[2018-10-10] MEDS: clonazePAM 0.5 MG TABLET PO PRN (22:20)
[2018-10-11] MEDS ORDERED: METHADONE HCL 10 MG TABLET (FOR DETOX USE ONLY) PO ONE (10:00)
[2018-10-11] MEDS: amLODIPine BESYLATE 5 MG TABLET (FP) PO SCH (10:27)
[2018-10-11] MEDS: PRENATAL VITAMINS W/ FOLIC ACID TABLET (FP) PO SCH (10:27)
[2018-10-11] MEDS: FLUOCINONIDE 0.05% TOP OINT (60 GM TUBE) TP SCH ×2 (10:28→22:08)
[2018-10-11] MEDS: hydrOXYzine PAMOATE 25 MG CAPSULE (FP) PO PRN ×2 (10:29→22:08)
--- NOTE | 2018-10-11 11:00 | PN ---
[facility] COWS - Scale Resting Pulse: 0= [place] 80 or Below Sweatin= No chills or Flushing Restless Observation: 1= Difficult to Sit Still Pupil Size: 0= Normal to Room Light Bone or Joint Aches: 1= Mild Discomfort Runny Nose/ Eye Tearin= None GI Upset > 30mins: 0= None Tremor Observation of Outstretched Hands: 1= Tremor [place], Not Seen Yawning Observation: 1= 1-2x During Session Anxiety or Irritability: 1=Feels Anxious/Irritable Goose Flesh Skin: 0=Smooth Skin COWS Score: 5 B[facility] Progress Note (SOAP) Subjective: I am feeling much better. a little anxiety i need to leave tomorrow. I can handle not taking my last dose of 5mg on sunday. Objective: 10/11/18 10:59 Vital Signs Temperature 98.2 F 10/11/18 09:16 Pulse Rate 18 L 10/11/18 09:16 Respiratory Rate 18 10/11/18 09:16 Blood Pressure 130/70 10/11/18 09:16 O2 Sat by Pulse Oximetry (%) Laboratory Tests 10/09/18 10/09/18 10/10/18 10:00 19:16 07:00 WBC 7.5 RBC 4.30 Hgb 13.1 Hct 40.6 MCV 94.4 MCH 30.6 MCHC 32.4 RDW 13.9 Plt Count 312 MPV 9.1 Sodium Potassium Chloride Carbon Dioxide Anion Gap BUN Creatinine Est GFR (CKD-EPI)AfAm Est GFR (CKD-EPI)NonAf Random Glucose Calcium Total Bilirubin AST ALT Alkaline Phosphatase Total Protein Albumin Urine Color Yellow Urine Appearance Cloudy Urine pH 6.5 D Ur Specific [place] 1.020 Urine Protein Negative Urine Glucose (UA) Negative Urine Ketones Negative Urine Blood Negative Urine Nitrite Negative Urine Bilirubin Negative Urine Urobilinogen 0.2 Ur Leukocyte Esterase 1+ H Urine WBC (Auto) 12 Urine RBC (Auto) 2 Urine Casts (Auto) 2 U Epithel Cells (Auto) 18.8 Urine Crystals (Auto) Calcium oxalate Urine Bacteria (Auto) 325.5 POC Urine HCG, Qual Negative RPR Titer 10/10/18 10/10/18 07:00 07:00 WBC RBC Hgb Hct MCV MCH MCHC RDW Plt Count MPV Sodium 140 Potassium 3.5 Chloride 101 Carbon Dioxide 33 H Anion Gap 5 L BUN 10 Creatinine 0.8 Est GFR (CKD-EPI)AfAm 90.30 Est GFR (CKD-EPI)NonAf 77.91 Random Glucose 105 Calcium 9.3 Total Bilirubin 1.0 AST 15 ALT 17 Alkaline Phosphatase 59 Total Protein 7.1 Albumin 3.6 Urine Color Urine Appearance Urine pH Ur Specific [place] Urine Protein Urine Glucose (UA) Urine Ketones Urine Blood Urine Nitrite Urine Bilirubin Urine Urobilinogen Ur Leukocyte Esterase Urine WBC (Auto) Urine RBC (Auto) Urine Casts (Auto) U Epithel Cells (Auto) Urine Crystals (Auto) Urine Bacteria (Auto) POC Urine HCG, Qual RPR Titer Nonreactive labs noted aaox3 ambulating no acute distress Assessment: 10/11/18 10:59 mild withdrawal sx Plan: continue detox increase fluids d/c in am
--- NOTE | 2018-10-11 11:15 | PN ---
[facility] Progress Note Note: pt was advised to see her PCP and follow up on her chronic medical issue regarding her hypertension. Rx for norvasc 10mg for two week supply was ordered to her pharmacy until she see her pcp. pt in agreement.
[2018-10-11] MEDS: clonazePAM 0.5 MG TABLET PO PRN (17:51)
[2018-10-11] MEDS: THIAMINE HCL 100 MG TABLET (FP) PO SCH (22:08)
[2018-10-12] MEDS ORDERED: METHADONE HCL 10 MG TABLET (FOR DETOX USE ONLY) PO ONE ×2 (06:00→10:00)
[2018-10-12 06:15] VITALS: BP 134/84; PULSE 64; TEMP 98.2
--- NOTE | 2018-10-12 12:47 | DS ---
[facility] Detox Discharge Summary Admission Date: 10/09/18 Discharge Date: 10/12/18 - History Present History: Opioid Dependence Additional Comments: Pt is medically cleared and discharged today. As per health social work professor notes, "PT continued to decline aftercare referral. She was provided with 12-step meetings info near her home". Pt is AOX3, in no respiratory distress. Pt is given prescription for her antihypertensive med by the previous provider. Pertinent Past History: OPioid used disorder - Physical Exam Results Vital Signs: Vital Signs Temperature 98.2 F 10/12/18 06:00 Pulse Rate 64 10/12/18 06:00 Respiratory Rate 18 10/12/18 06:00 Blood Pressure 134/84 10/12/18 06:00 O2 Sat by Pulse Oximetry (%) Pertinent Admission Physical Exam Findings: withdrawal symptoms - Treatment Hospital Course: Detox Protocol Followed, Detoxed Safely, Responded well, Discharged Condition Good - Medication Discharge Medications: Ambulatory Orders Amlodipine Besylate [Norvasc -] 10 mg PO DAILY #10 tablet 10/11/18
[2018-10-13] MEDS ORDERED: METHADONE HCL 5 MG TABLET (FOR DETOX USE ONLY) PO ONE (06:00)
== END 2018-10-12 08:43 | disposition home or self-care (01) | DRG 773 ==
LOC: YASAS 14:42 → Y6N 20:50
PROVIDERS: ADMIT Surgery; ATTEND Surgery
PROC: HZ2ZZZZ Detoxification Services for Substance Abuse Treatment (ICD-10-PCS; principal; 2018-10-09)
DX: F11.23 Opioid dependence with withdrawal (principal); F17.210 Nicotine dependence, cigarettes, uncomplicated; I10 Essential (primary) hypertension; L30.9 Dermatitis, unspecified; Z86.19 Personal history of other infectious and parasitic diseases; Z91.018 Allergy to other foods
CPT/HCPCS: 36415; 80053; 81003; 81025; 85027; 86593; J0735